=== PATIENT | male | born 1945 | race Caucasian/White ===

== ENCOUNTER 2016-04-12 11:55 | Day surgery (SDC) | payer OTHER ==
[~2016-04-12] VITALS: Ht 167.6 cm; Wt 73.8 kg
[2016-04-12] VITALS (7 sets, daily range): BP systolic 90–124; BP diastolic 45–57; PULSE 62–98; RESP 14–18; O2SAT 97–99
[~2016-04-12 11:55] MED LIST: ASCO-294 PO; BISO5TAB2 PO; CBD OIL SL; CHOL100045 PO; CeFAZolin 2 Gm/50 mL D5W IV Premix IV ONE; MAGN400C PO; MULT-1018 PO; OMEG-38 PO; [UNRECOGNIZED DRUG - CODE] SQ
[2016-04-12] MEDS ORDERED: Propofol 10,000 mCg/mL 20 mL Inj ONE (11:56)
[2016-04-12] MEDS ORDERED: Ondansetron 2 mg/mL 2 mL Inj ONE (11:56)
[2016-04-12] MEDS: Lactated Ringer's 1,000 ML IV SCH ×2 (12:13→14:28)
[2016-04-12] MEDS ORDERED: CeFAZolin 2 Gm/50 mL D5W Duplex Bag IV ONE (12:43)
[2016-04-12] MEDS ORDERED: Lactated Ringer's 500 ML IV PRN (14:08)
[2016-04-12] MEDS ORDERED: Lactated Ringer's 1,000 ML IV SCH (14:08)
[2016-04-12] MEDS ORDERED: EPHEDrine Sulfate 50 mg/mL Inj IVPUSH PRN (14:10)
[2016-04-12] MEDS ORDERED: MetoCLOpramide 5 mg/mL 2 mL Inj IVPUSH PRN (14:10)
[2016-04-12] MEDS ORDERED: Dexamethasone 4 mg/mL Inj IVPUSH PRN (14:10)
[2016-04-12] MEDS ORDERED: Ondansetron 2 mg/mL 2 mL Inj IVPUSH PRN (14:10)
[2016-04-12] MEDS ORDERED: Phenylephrine 10,000 mCg/mL Inj IVPUSH PRN (14:10)
[2016-04-12] MEDS ORDERED: fentaNYL-PF 50 mCg/mL 2 mL Inj IVPUSH PRN (14:10)
[2016-04-12] MEDS ORDERED: Labetalol 5 mg/mL 4 mL Inj IV PRN (14:10)
[2016-04-12] MEDS ORDERED: HYDROmorphone 1 mg/mL Inj IVPUSH PRN (14:10)
--- NOTE | 2016-04-12 14:10 | PCM.HPANE ---
Patient Data Surgeon Admitting Provider: Attending Provider:Jules Parra MD [facility] Other Provider: Reason for Visit Right Ureteral Obstruction Ht/WT & BMI Height (Feet): 5 Height (Inches): 6 Weight (Kilograms): 73.8 Body Mass Index 26.00 Allergies Coded Allergies: chlorhexidine (Verified Allergy, Unknown, 04/12/16) Uncoded Allergies: CHLORAPREP (Allergy, Unknown, 04/12/16) Past Anesthesia History Anesthesia History: Denies:: Abnormal Airway, Anesthesia Reactions, Difficult Intubation, Malignant Hyperthermia Diabetes History Hx Diabetes?: No MRSA MRSA: No Medications Blood Thinner: Aspirin Home Meds Incl Beta Sheri: No Reported Medications [Cbd Oil] No Conflict Check1 Drop SL BID 04/06/16 Cholecalciferol (Vitamin D3) (Vitamin D)1,000 Unit Capsule1,000 Unit PO DAILY # 1 BOTTLE Ref 0 03/27/16 Ascorbate Calcium (Vitamin C)500 Mg [id number] Mg PO DAILY 03/27/16 Multivitamin (Multi Vitamin Daily)1 Each Tablet1 Each PO DAILY 30 Days Ref 0 03/27/16 Magnesium Oxide (Magnesium)400 Mg [id number] Mg PO DAILY 03/27/16 Dalteparin Sodium,Porcine (Fragmin)5,000 Unit/0.2 Ml Syringe5,000 Unit SQ DAILY PRN anticoagulation 03/27/16 [place]-3/Dha/Epa/Fish Oil (Fish Oil 1,000 mg Softgel)1 Each Capsule1 Each PO DAILY 03/27/16 Bisoprolol Fumarate 5 Mg Tablet5 Mg PO DAILY 03/27/16 History History of ENT Problems?: Yes HEENT History: Denies:: Abnormal Airway Difficult Intubation Hx of Heart Problems?: Yes Cardiovascular History: Positive for:: Atrial Fibrillation (hx psvt) Cardiac Surgery (colon surgery Left lower abdomen ) Edema (r/t dvt rt leg & lymphedema) Hypertension (hyperlipidemia tx w/ dietary changes) Irregular Heartbeat (hx psvt) Rheumatic Fever (REPORTS MITRAL VALVE ISSUES IN CHILDHOOD) Thrombophlebitis (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/Femoral Veins- on Fragmin) Denies:: Chest Pain Congestive Heart Failure Heart Murmur (none currently) Valvular Heart Disease (reports mitral valve issues in childhood) Other Cardiac History: pt seen and deferred for IVC filter at this time, remains on fragmin, Dr Parra aware Hx of Respiratory Problem?: No Respiratory History: Denies:: Asthma COPD Emphysema Oxygen Administration Pneumonia Tuberculosis Use of C-PAP Machine Hx Neurologic Problems?: Yes Neurological History: Positive for:: Headaches Denies:: CVA Multiple Sclerosis Parkinson's Disease Seizures Hx of GI Problems?: Yes Gastrointestinal History: Positive for:: Gastroesphageal Reflux Denies:: Diverticulitis Gastrointestinal Bleeding Hepatitis Hiatal Hernia Hx of Problems?: Yes Genitourinary History: Denies:: Kidney Stones (CURRENT HYDRONEPHROSIS(STENT SURG CX R/T DVT'S 03/29/16) Other Pertinent History: hydronephrosis related to pelvic ca current admission problem Male Hx: Denies:: Prostate Problems Scrotal Mass Testicular Surgery Skin History: Positive for:: History Skin Disorders? (S/P EXC SQUAMOUS CELL CA LT TENRIISM,BASAL CELL CA NOSE) Denies:: Pressure Ulcers Hx Musculoskeletal Problems?: Yes Musculoskeletal History: Positive for:: Musculoskeletal Trauma (past hx ORIF ankle) Denies:: Back Injury Joint Replacement Hx of Psycho/Social Problems?: Yes Psycho Social History: Positive for:: Anxiety Hx Depression Hx Surgeries?: Yes (orif ankle, colon resections, colostomy) Hx Any Other Health Problems?: Yes Other History: Positive for:: Cancer (metastatic colo rectal ca) Hospitalization Denies:: Endocrine Disease Thyroid Disease History Blood Transfusions: Denies:: Blood Transfusions (Refuses Blood) Hx Diabetes: No Hx Alcohol Use: NoHx Substance Use: No Smoking Status: Current Every Day Smoker Have You Smoked inLast 12 mo: No Stop/Bang Treated for Sleep Apnea?: No Do You Have a CPAP Machine?: No P-Blood Pressure: treated: No B- Body Mass Index > 35 kg/m2: No A- Age over 50: Yes N- Neck Large Circumference: No G- Gender Male: Yes MEMO Risk Assessment: Low Risk, <3 Yes Risk Assessment Category Category 1A: Patient has history of documented sleep apnea, and HAS NOT received any narcotic, sedative or anesthesia administration during this stay. Category 1B: Patient has history of documented sleep apnea, and HAS received any narcotic , sedative or anesthesia administration during this stay Category 2: Patient has SUSPECTED Obstructive Sleep Apnea, and HAS received any narcotic , sedative or anesthesia administration during this stay. Category 3: Patient has SUSPECTED Obstructive Sleep Apnea and HAS NOT received narcotic, sedative or anesthesia administration during this stay. Category 4: Outpatient in Procedural Areas with known sleep apnea or who screen positive for High Risk via the STOP/BANG questionnaire. Exam Exam Vital Signs Vital Signs Date Time Temp Pulse Resp B/P Pulse Ox O2 Delivery O2 Flow Rate FiO2 04/12/16 12:46 36.8 62 18 109/48 99 Room Air General Appearance: Oriented X3 HEENT/AIRWAY: MP 2 Lungs: Normal Air Movement Heart: Exam Unremarkable Meds/Labs/Diagnostics Admission Meds Current Medications Lactated Ringer's (Lr) 1,000 ml @ 120 mls/hr Q8H20M IV Last administered on t 12:13; Start 04/12/16 at 05:00; Stop 04/12/16 at 13:19; Status DC Plan Impression Patient chart reviewed, patient interviewed and anesthestic plan with risks, benefits, and alternatives discussed, and informed consent obtained. NPO Status: 04/12/16 midnight ASA Physical Status: ASA4 Life Threatening Anesthetic Plan: GA Bene/Risks/Altern/Consents: Yes HP Complete Prior to Induction: Yes Garfield Galindo MD Apr 12, 2016 14:10
[2016-04-12] MEDS ORDERED: Belladonna Alk-Opium 60 mg Rectal Suppository RECTAL ONE (15:25)
--- NOTE | 2016-04-12 15:56 | PCM.ANEP1 ---
Post Anesthesia Phase 1 PACU Phase 1 Assessment Vital Signs Vital Signs Date Time Temp Pulse Resp B/P Pulse Ox O2 Delivery O2 Flow Rate FiO2 04/12/16 15:40 36.5 63 15 115/56 97 Room Air 04/12/16 12:46 36.8 62 18 109/48 99 Room Air Anesthetic Administered: GA Level of Alertness: Awake, talking Pain: No Nausea or Vomiting: No Oxygen Delivery: Room Air Lungs: Normal Air Movement Garfield Galindo MD Apr 12, 2016 15:56
--- NOTE | 2016-04-12 15:56 | PCM.ANEP2 ---
Post Anesthesia Evaluation ASA/CMS Post Anesthesia VS in Patient's Normal Range?: Yes Resp Stable; Airway Patent?: Yes CV Function & Hydration Stable: Yes Mental Status Recovered?: Yes Pain control Satisfactory?: Yes N/V Control Satisfactory?: Yes Garfield Galindo MD Apr 12, 2016 15:56
--- NOTE | 2016-04-12 15:59 | PCM.SURGPO ---
Immediate Operative Note Date of Surgery: Apr 12, 2016 Pre Operative Diagnosis R hydronephrosis Post Operative Diagnosis R hydronephrosis Procedure Cystoscopy, R retrograde pyelogram, and R ureteral stent placement Surgeon and Development Intern Surgeon: Jules Parra MD Assistants: None Findings Cystoscopy revealed evidence for minimal radiation cystitis (with no bleeding seen) and no bladder tumors, lesions, or calculi. R retrograde pyelogram revealed moderate R hydroureteronephrosis down to distal R ureter, no filling defects in R renal collecting system or R ureter, and evidence for extrinsic compression of R distal ureter. R ureteral stent was placed. Complications There were no periprocedural complications identified. Surgical Specimen Removed: No Specimen sent to Pathology: No Anesthetic Administered: GA Grafts, Implants: Other (28cm x 6F R ureteral JJ stent (no string)) Output, Estimated Blood Loss: <5 Blood Admin during surgery: No Additional information Patient to be discharged home when stable, to return to see me in the office in 1.5 - 2 weeks for post-op visit. Jules Parra MD Apr 12, 2016 15:59
--- NOTE | 2016-04-12 16:21 | PCM.DISURG ---
Surgical Discharge Instruction Date of Service Apr 12, 2016 Dates of Hospitalization Date of Hospital Admission Apr 12, 2016 Providers Admitting Physician: Jules Parra MD [facility] Attending Physician: Jules Parra MD Discharge Diagnosis Discharge Diagnosis R hydronephrosis Post Operative diagnosis R hydronephrosis Diet Discharge Diet: No restrictions, Other (Drink at least 8 - 10 8oz. glasses (2 - 2.5 liters) of fluids as long as there is blood in the urine) Activity Discharge Activity-General: No restrictions, No driving while taking narcotic Dressing and Incisional Care Hygiene: May shower Follow Up Plan Follow-up Provider (F9): Jules Parra MD Follow-up appointment: Weeks (1.5 - 2 weeks for post-op visit) Call your provider for: Fever, Chills, Vomiting, Other (Pain uncontrolled by pain medications) Jules Parra MD Apr 12, 2016 16:21
[2016-04-12] MEDS ORDERED: HYDROcodone-APAP 5-325 mg Tablet PO PRN (16:30)
--- NOTE | 2016-04-12 16:58 | DRSVH ---
PROCEDURE: X-RAY RETROGRADE UROGRAPHY INDICATIONS: STENT PLACEMENT TECHNIQUE: 16 intra-operative images acquired by the Urology service. COMPARISON: None. FINDINGS: Intraoperative fluoroscopic images demonstrate prominent hydronephrosis and hydroureter. T his is presumed to be right-sided based on renal ultrasound 04/11/16. Ureterovesicular stent is noted. IMPRESSION: Ureterovesicular stent placement as above. Dictated by: Caity You M.D. on 04/12/2016 at 16:56 Approved by: Caity You M.D. on 04/12/2016 at 16:56
[2016-04-13] MEDS ORDERED: OXYB5TAB10 PO (08:54)
[2016-04-13] MEDS ORDERED: PHEN-684 PO (08:54)
[2016-04-13] MEDS ORDERED: CIPR-198 PO (08:54)
[2016-04-13] MEDS ORDERED: HYDR-3740 PO (08:54)
[2016-04-13] MEDS ORDERED: DOCU-41 PO (08:54)
--- NOTE | 2016-04-14 06:04 | OP ---
[address] [address] OPERATIVE REPORT PATIENT: BRAXTON VAZQUEZ : 1945 MR#: [id number] ADMIT: 04/12/2016 JOB ID: [id number] DATE OF SURGERY: 04/12/2016 PREOPERATIVE DIAGNOSIS(ES): Right hydronephrosis. POSTOPERATIVE DIAGNOSIS(ES): Right hydronephrosis. PROCEDURE: 1. Cystoscopy. 2. Right retrograde pyelogram. 3. Right ureteral stent placement. SURGEON: Jules Parra MD. ENGRAVER SEALS: None. ANESTHESIA: General. ESTIMATED BLOOD LOSS: Less than 5 mL. SPECIMENS: None. DRAINS: A 28 cm x 6-Syrian right ureteral double-J stent. COMPLICATIONS: None. CONDITION: Stable. FINDINGS: Cystoscopy revealed evidence for minimal radiation cystitis (with no bleeding seen) and no bladder tumors, lesions, or calculi. Right retrograde pyelogram revealed moderate right hydroureteronephrosis down to the distal right ureter, no filling defects in right renal collecting system or right ureter, and evidence for extrinsic compression of right distal ureter. Right ureteral stent was placed. INDICATIONS: The patient is a 70-year-old male with right hydroureteronephrosis, right pelvic lymphadenopathy and recurrent rectal cancer. The patient now presents for cystoscopy, right retrograde pyelogram and right ureteral stent placement. DESCRIPTION OF PROCEDURE: The patient was brought into the operating room and placed supine on the operating room table. The patient was given Ancef IV antibiotics. Sequential compression device boot was placed on the left lower extremity only, as the patient has a history of right lower extremity DVT, and of note, the patient has been on Fragmin, which was continued perioperatively and was not held. General anesthesia was administered. The patient was brought down into the dorsal lithotomy position. The patient was prepped and draped in a standard surgical fashion. A 22-Syrian rigid cystoscope was placed into the distal urethra without difficulty. Cystoscopy revealed normal distal urethra, evidence for minimal radiation cystitis (with no bleeding seen), no bladder tumors, lesions, or calculi, and bilateral ureteral orifices in normal position. A 5-Syrian open-ended catheter with assistance of a straight tip UltraTrack guidewire was placed into the right ureteral orifice and into the right distal ureter. Contrast was instilled through the open-ended catheter into the right ureter and right renal collecting system to perform a right retrograde pyelogram, which revealed moderate right hydroureteronephrosis down to the distal right ureter, no filling defects in the right renal collecting system or right ureter, and evidence for extrinsic compression of right distal ureter with a narrowed right distal ureter. The straight tip UltraTrack guidewire was passed through the open-ended catheter up the right ureter into the right renal pelvis. The open-ended catheter was removed. A 28 cm x 6-Syrian ureteral double-J stent , with the stent string removed prior to stent placement, was passed over the guidewire through the cystoscope and passed up the right ureter and placed so that the proximal pigtail was located in the right renal pelvis and the distal pigtail was located in the bladder. The guidewire was removed. Correct positioning of the stent was confirmed both fluoroscopically and under direct visualization using the cystoscope. Good efflux of contrast could be seen draining from the distal end of the stent into the bladder, further confirming correct stent positioning. Thus, right ureteral stent was placed. The bladder was drained via the cystoscope. The cystoscope was removed from the patient. The skin was cleaned and dried. The patient was placed in a supine position. The patient was awakened from general anesthesia and transferred to the recovery room in stable condition. The patient tolerated the procedure well. Plan is for the patient to be discharged home when stable and to return to see me in the office in 1-1/2 to 2 weeks for postoperative visit. PIPPA
[2016-05-30] MEDS ORDERED: ZINC25LO PO (09:45)
== END 2016-04-12 23:59 | disposition home or self-care (01) ==
LOC: SAS 11:55
PROVIDERS: ATTEND Urology
DX: N13.1 Hydronephrosis with ureteral stricture, not elsewhere classified (principal); C77.5 Secondary and unspecified malignant neoplasm of intrapelvic lymph nodes; Z85.048 Personal history of other malignant neoplasm of rectum, rectosigmoid junction, and anus; Z86.718 Personal history of other venous thrombosis and embolism; Z79.01 Long term (current) use of anticoagulants; I48.2 Chronic atrial fibrillation; I10 Essential (primary) hypertension; Z79.82 Long term (current) use of aspirin; F17.200 Nicotine dependence, unspecified, uncomplicated
CPT/HCPCS: 52332; 74420; C2617; J0690; J2405; J7120; Q9967

== ENCOUNTER 2016-04-27 08:57 | Day surgery (SDC) | payer OTHER ==
[~2016-04-27] VITALS: Ht 166.4 cm; Wt 76.0 kg
[~2016-04-27 08:57] MED LIST changes: +CIPR-198 PO; -CeFAZolin 2 Gm/50 mL D5W IV Premix IV ONE; +DOCU-41 PO; +HYDR-3740 PO; +Lactated Ringer's 1,000 ML IV ONE; +OXYB5TAB10 PO; +PHEN-684 PO
[2016-04-27] MEDS ORDERED: Propofol 10,000 mCg/mL 20 mL Inj ONE (08:58)
[2016-04-27 09:11] VITALS: BP 125/64; PULSE 89; RESP 16; O2SAT 100
[2016-04-27] MEDS ORDERED: MetoCLOpramide 5 mg/mL 2 mL Inj IVPUSH PRN (09:30)
[2016-04-27] MEDS ORDERED: Lactated Ringer's 1,000 ML IV SCH (09:30)
[2016-04-27] MEDS ORDERED: Ondansetron 2 mg/mL 2 mL Inj IVPUSH PRN (09:30)
--- NOTE | 2016-04-27 09:30 | PCM.HPANE ---
Patient Data Surgeon Admitting Provider: Attending Provider:Jasper Herman MD [facility] Other Provider:Mook Strickland Anesthesia Reason for Visit Malignant Neoplasm Of Rectum, Gerd Ht/WT & BMI Height (Feet): 5 Height (Inches): 5.5 Weight (Kilograms): 76 Body Mass Index 27.00 Allergies Coded Allergies: chlorhexidine (Verified Allergy, Unknown, 04/26/16) Uncoded Allergies: CHLORAPREP (Allergy, Unknown, 04/12/16) Past Anesthesia History Anesthesia History: Denies:: Abnormal Airway, Anesthesia Reactions, Difficult Intubation, Fam Anesthesia Reaction, Fam Malignant Hypertherm, Malignant Hyperthermia Diabetes History Hx Diabetes?: No MRSA MRSA: No Medications Blood Thinner: Aspirin Last Dose Blood Thinner: Apr 25, 2016 Reported Medications Hydrocodone-Acetaminophen 10-325 mg 1 Each Tablet1 Tablet PO Q4H PRN For Pain Ref 0 04/13/16 Docusate Sodium (Colace)100 Mg [id number] Mg PO TID PRN For Constipation Ref 0 04/13/16 [Cbd Oil] No Conflict Check1 Drop SL BID 04/06/16 Cholecalciferol (Vitamin D3) (Vitamin D)1,000 Unit Capsule1,000 Unit PO DAILY # 1 BOTTLE Ref 0 03/27/16 Ascorbate Calcium (Vitamin C)500 Mg [id number] Mg PO DAILY 03/27/16 Multivitamin (Multi Vitamin Daily)1 Each Tablet1 Each PO DAILY 30 Days Ref 0 03/27/16 Magnesium Oxide (Magnesium)400 Mg [id number] Mg PO DAILY 03/27/16 Dalteparin Sodium,Porcine (Fragmin)5,000 Unit/0.2 Ml Syringe5,000 Unit SQ DAILY PRN anticoagulation 03/27/16 [place]-3/Dha/Epa/Fish Oil (Fish Oil 1,000 mg Softgel)1 Each Capsule1 Each PO DAILY 03/27/16 Discontinued Reported Medications Ciprofloxacin 500 Mg [id number] Mg PO BID 04/13/16 Oxybutynin Chloride 5 Mg Tablet5 Mg PO TID Ref 0 04/13/16 Phenazopyridine (Pyridium)200 Mg [id number] Mg PO TID PRN For Pain Ref 0 04/13/16 Bisoprolol Fumarate 5 Mg Tablet5 Mg PO DAILY 03/27/16 History History of ENT Problems?: Yes HEENT History: Denies:: Abnormal Airway Difficult Intubation Hearing Problem Hx of Heart Problems?: Yes Cardiovascular History: Positive for:: Atrial Fibrillation (hx psvt, HAS RIGHT LEG DVT CURRENTLY.) Cardiac Surgery (colon surgery Left lower abdomen ) Edema (r/t dvt rt leg & lymphedema) Hypertension (hyperlipidemia tx w/ dietary changes) Irregular Heartbeat (hx psvt) Rheumatic Fever (REPORTS MITRAL VALVE ISSUES IN CHILDHOOD) Thrombophlebitis (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/Femoral Veins- on Fragmin) Denies:: AICD Chest Pain Congestive Heart Failure Heart Murmur (none currently) Pacemaker Valvular Heart Disease (reports mitral valve issues in childhood) Hx of Respiratory Problem?: No Respiratory History: Denies:: Asthma COPD Emphysema Oxygen Administration Pneumonia Tuberculosis Use of C-PAP Machine Hx Neurologic Problems?: Yes Neurological History: Positive for:: Headaches Denies:: CVA Multiple Sclerosis Parkinson's Disease Seizures Hx of GI Problems?: Yes Gastrointestinal History: Positive for:: Gastroesphageal Reflux Denies:: Cirrhosis Diverticulitis Gall Bladder Disease Gastrointestinal Bleeding Hepatitis Hiatal Hernia Liver Disease Rectal Bleeding Hx of Problems?: Yes Genitourinary History: Denies:: Kidney Stones (CURRENT HYDRONEPHROSIS(STENT SURG CX R/T DVT'S 03/29/16) Male Hx: Denies:: Prostate Problems Scrotal Mass Testicular Surgery Skin History: Positive for:: History Skin Disorders? (S/P EXC SQUAMOUS CELL CA LT CHEONDOISM,BASAL CELL CA NOSE) Denies:: Pressure Ulcers Hx Musculoskeletal Problems?: Yes Musculoskeletal History: Positive for:: Musculoskeletal Trauma (S/P ORIF RT ANKLE) Denies:: Back Injury Fibromyalgia Joint Replacement Hx of Psycho/Social Problems?: Yes Psycho Social History: Positive for:: Anxiety Hx Depression Hx Surgeries?: Yes (orif ankle, colon resections, colostomy, RT URETER STENT) Hx Any Other Health Problems?: Yes Other History: Positive for:: Cancer (RECTAL,SQUAMOUS & BASAL CELL SKIN CA'S) Hospitalization Denies:: Endocrine Disease Thyroid Disease History Blood Transfusions: Denies:: Blood Transfusions (Refuses Blood) Hx Diabetes: No Hx Alcohol Use: NoHx Substance Use: No Smoking Status: Never Smoker Have You Smoked inLast 12 mo: No Stop/Bang Treated for Sleep Apnea?: No Do You Have a CPAP Machine?: No S-Snoring: Do You Snore Loudly: Yes T-Tired: feel tired, fatigued: No O-Obsered: Observed not breath: No P-Blood Pressure: treated: Yes B- Body Mass Index > 35 kg/m2: No A- Age over 50: Yes N- Neck Large Circumference: No G- Gender Male: Yes MEMO Total Score: 4 MEMO Risk Assessment: Low Risk, <3 Yes MEMO Category 2: Yes Risk Assessment Category Category 1A: Patient has history of documented sleep apnea, and HAS NOT received any narcotic, sedative or anesthesia administration during this stay. Category 1B: Patient has history of documented sleep apnea, and HAS received any narcotic , sedative or anesthesia administration during this stay Category 2: Patient has SUSPECTED Obstructive Sleep Apnea, and HAS received any narcotic , sedative or anesthesia administration during this stay. Category 3: Patient has SUSPECTED Obstructive Sleep Apnea and HAS NOT received narcotic, sedative or anesthesia administration during this stay. Category 4: Outpatient in Procedural Areas with known sleep apnea or who screen positive for High Risk via the STOP/BANG questionnaire. Exam Exam Vital Signs Vital Signs Date Time Temp Pulse Resp B/P Pulse Ox O2 Delivery O2 Flow Rate FiO2 04/27/16 09:11 36.4 89 16 125/64 100 Room Air General Appearance: Oriented X3 HEENT/AIRWAY: MP 2 Lungs: Normal Air Movement Heart: Other Meds/Labs/Diagnostics Admission Meds Current Medications Lactated Ringer's (Lr) 1,000 ml @ 10 mls/hr Q24H ONCE IV Last administered on 04/27/16 09:25; Start 04/27/16 at 06:00; Stop 04/28/16 at 05:59 Plan Impression Patient chart reviewed, patient interviewed and anesthestic plan with risks, benefits, and alternatives discussed, and informed consent obtained. NPO Status: 04/12/16 midnight ASA Physical Status: ASA3 Severe Disease Anesthetic Plan: MAC Bene/Risks/Altern/Consents: Yes HP Complete Prior to Induction: Yes Garfield Galindo MD Apr 27, 2016 09:30
[2016-04-27 10:09] VITALS: BP 97/52; PULSE 87; RESP 15; O2SAT 95
--- NOTE | 2016-04-27 10:16 | PCM.ANEP1 ---
Post Anesthesia Phase 1 PACU Phase 1 Assessment Vital Signs Vital Signs Date Time Temp Pulse Resp B/P Pulse Ox O2 Delivery O2 Flow Rate FiO2 04/27/16 10:09 87 15 97/52 95 Room Air 04/27/16 09:11 36.4 89 16 125/64 100 Room Air Anesthetic Administered: MAC Level of Alertness: Awake, talking Pain: No Nausea or Vomiting: No Oxygen Delivery: Room Air Lungs: Normal Air Movement Garfield Galindo MD Apr 27, 2016 10:16
--- NOTE | 2016-04-27 10:17 | PCM.ANEP2 ---
Post Anesthesia Evaluation ASA/CMS Post Anesthesia VS in Patient's Normal Range?: Yes Resp Stable; Airway Patent?: Yes CV Function & Hydration Stable: Yes Mental Status Recovered?: Yes Pain control Satisfactory?: Yes N/V Control Satisfactory?: Yes Garfield Galindo MD Apr 27, 2016 10:17
[2016-04-27 10:19] VITALS: BP 99/58; PULSE 87; RESP 16; O2SAT 99
[2016-04-27 10:28] VITALS: BP 102/60; PULSE 77; RESP 16; O2SAT 99
--- NOTE | 2016-04-27 10:43 | ENDO ---
[address] [address] ENDOSCOPY PROCEDURE PATIENT: BRAXTON VAZQUEZ : 1945 MR#: [id number] ADMIT: 04/27/2016 JOB ID: [id number] DATE OF SERVICE: 04/27/2016 TYPE OF OPERATION: 1. Esophagogastroduodenoscopy with biopsy. 2. Colonoscopy. PREOPERATIVE DIAGNOSES: 1. Gastroesophageal reflux disease. 2. History rectal cancer. POSTOPERATIVE DIAGNOSES: 1. Widely open, patent Schatzki ring. 2. Mild nonerosive gastritis. 3. Normal colonoscopy through the ostomy. ANESTHESIA: Monitored anesthesia care. COMPLICATIONS: None. BLOOD LOSS: Minimal. DESCRIPTION OF PROCEDURE: After risks and benefits were explained to the patient, informed consent was obtained. After anesthesia administered, upper endoscope was then inserted from the mouth and intubated into the esophagus, stomach, second portion of duodenum. Mucosa carefully examined. After procedure was done, the scope was withdrawn and the procedure terminated. A colonoscope was then inserted through the ostomy to the cecum. Mucosa carefully examined. Prep of the patient was excellent. After procedure was done, the scope withdrawn and procedure terminated. FINDINGS: Upon inspection of the esophagus, there was a widely open, patent Schatzki ring at the distal esophagus. Z-line located at 40 cm from incisors. Upon entering the stomach, there was mild nonerosive gastritis that was seen throughout the entire stomach. No masses, ulcers, or lesions were seen. Duodenal bulb, first and second portions were normal. Biopsies taken of the antrum and body of stomach and distal esophagus. Upon inspection of the ostomy site, it looked clean and dry without any evidence of induration or pus. There was no opening at the anus due to his prior history of rectal cancer, which was resected. The colonoscope was inserted through the ostomy site, and there were no polyps or masses that were seen throughout the entire examination. IMPRESSIONS: 1. Widely open, patent Schatzki ring. 2. Mild nonerosive gastritis. 3. Normal colonoscopy through the ostomy site. RECOMMENDATIONS: 1. Start omeprazole 20 mg by mouth once a day. 2. Await pathology results. 3. Repeat colonoscopy in five years, given history of rectal cancer.
--- NOTE | 2016-05-01 14:17 | PATH ---
SURGICAL PATHOLOGY Attending Physician:Jasper Herman MD CASE STATUS: Signed Out PATIENT NAME: BRAXTON VAZQUEZ PID: [id number] : 1945 DATE COLLECTED:04/27/2016 16:17 SPECIMEN: 1: Stomach, Antrum, Biopsy 2: Gastric, Biopsy 3: Esophagus, Biopsy CLINICAL HISTORY: 1: ANTRUM BIOPSY 2: GASTRIC BODY BIOPSY 3: DISTAL ESOPHAGUS BIOPSY FINAL DIAGNOSIS: 1. Antrum Biopsy: Moderate chronic gastritis involving antral mucosa. Positive for Helicobacter pylori by immunohistochemistry. Negative for intestinal metaplasia. Negative for dysplasia and malignancy. 2. Gastric Body Biopsy: Mild to moderate chronic gastritis involving fundic mucosa. Positive for Helicobacter pylori by immunohistochemistry. Negative for intestinal metaplasia. Negative for dysplasia and malignancy. 3. Distal Esophagus Biopsy: Fragments of squamous epithelium and gastric cardia-type mucosa, chronically inflamed. Negative for Dee's type esophagus by alcian blue stain. Negative for dysplasia and malignancy. Eosinophils are not increased. ICD10 B96.81 GROSS DESCRIPTION: The specimen is received in three formalin filled containers labeled with the patient's name. 1. The specimen is sublabeled "antrum" and consists of 2 portions of tissue which aggregate to 0.3 x 0.3 x 0.2 CM. Specimen is entirely submitted in cassette 1A. 2. The specimen is sublabeled "gastric body" and consists of a 0.5 x 0.3 x 0.2 CM portion of tissue which is entirely submitted in cassette 2A. 3. The specimen is sublabeled "distal esophagus" and consists of 3 portions of tissue which aggregate to 0.3 x 0.3 x 0.2 CM. The specimen is entirely submitted in cassette 3A. 04/27/2016 [facility] ICD-9 CODES: CPT CODES: 1: 43103, 99295 2: 05215, 72688 3: 31730, 20645 Electronically Signed Out Levy Enriquez MD [facility] Pathology [facility] [address], [place] [address] Technical component performed at [facility], [address], [place], [address]
[2016-05-30] MEDS ORDERED: ZINC25LO PO (09:45)
== END 2016-04-27 23:59 | disposition home or self-care (01) ==
LOC: END 08:57
PROVIDERS: ATTEND Internal Medicine Gastroenterology
PROC: 0DJD8ZZ Inspection of Lower Intestinal Tract, Via Natural or Artificial Opening Endoscopic (ICD-10-PCS; principal; 2016-04-27 09:45)
DX: Z12.11 Encounter for screening for malignant neoplasm of colon (principal); Z85.048 Personal history of other malignant neoplasm of rectum, rectosigmoid junction, and anus; K29.50 Unspecified chronic gastritis without bleeding; K22.2 Esophageal obstruction; A04.8 Other specified bacterial intestinal infections; K21.9 Gastro-esophageal reflux disease without esophagitis; I48.91 Unspecified atrial fibrillation; F43.10 Post-traumatic stress disorder, unspecified; E78.5 Hyperlipidemia, unspecified; F32.9 Major depressive disorder, single episode, unspecified; Z93.3 Colostomy status; Z92.3 Personal history of irradiation; Z92.21 Personal history of antineoplastic chemotherapy; Z79.82 Long term (current) use of aspirin
CPT/HCPCS: 43239; 44388; J7120